=== PATIENT | male | born 1955 | race Caucasian/White ===

== ENCOUNTER 2020-05-12 08:49 | Day surgery (SDC) | payer MEDICARE, OTHER ==
[~2020-05-12 08:49] MED LIST: Dextrose 5%-0.45% NaCl 1,000 ML IV SCH; Midazolam 1 MG/ML 2 ML SDV ONE; fentaNYL 100 MCG/2 ML SDV ONE
[2020-05-12] MEDS ORDERED: Midazolam 1 MG/ML 2 ML SDV IV ONE ×11 (08:50→10:22)
[2020-05-12] MEDS ORDERED: fentaNYL 100 MCG/2 ML SDV IV ONE ×7 (08:50→10:25)
--- NOTE | 2020-05-12 14:57 | OR ---
DATE: 05/12/2020 PREOPERATIVE DIAGNOSIS: Screening colonoscopy. POSTOPERATIVE DIAGNOSIS: Screening colonoscopy. PROCEDURE: Total colonoscopy. ANESTHESIA: Conscious sedation with IV Versed and fentanyl. SPECIMEN: None. OPERATIVE FINDINGS: Normal colonoscopy. RECOMMENDATIONS: Followup screening colonoscopy 10 years or sooner for symptoms. INDICATION FOR PROCEDURE: This 64-year-old male presents for screening colonoscopy. PROCEDURE IN DETAIL: After adequate preparation, a colonoscope was inserted into the rectum. This was easily passed all the way to the cecum. Confirmation of the cecum was made by visualization of the ileocecal valve and palpation in the right lower quadrant. The bowel prep was excellent. On withdrawal of the scope, there were no abnormalities noted. Air was suctioned from the colon and the scope removed. [facility] /[id number]
== END 2020-05-12 11:47 | disposition home or self-care (01) ==
LOC: DL.ENDO 08:49
PROVIDERS: ATTEND Surgery
DX: Z12.11 Encounter for screening for malignant neoplasm of colon (principal); Z88.5 Allergy status to narcotic agent; Z98.890 Other specified postprocedural states
CPT/HCPCS: G0121; J2250; J3010; J7042

== ENCOUNTER 2025-06-06 08:38 | Emergency (ER) | payer MEDICARE, OTHER ==
[2025-06-06] MEDS ORDERED: Sodium Chloride 0.9% 10 ML Syringe FLUSH PRN (08:44)
[2025-06-06] MEDS: Iopamidol 612 MG/ML 100 ML Bottle IVPUSH ONE (08:44)
[2025-06-06 09:12] LABS: BASOPHILS PERCENT AUTO 0.1 % (0.0-1.0); EOSINOPHILS PERCENT AUTO 1.5 % (1.0-3.0); LYMPHOCYTES PERCENT AUTO 13.2 % (20.5-50.1); MONOCYTES PERCENT AUTO 10.5 % (2-8); NEUTROPHILS PERCENT AUTO 74.7 % (42.2-75.2); PLATELET COUNT,PLT 237 10^3/uL (150-450); RED BLOOD CELL COUNT 5.28 10^6/uL (4.6-6.2); WHITE BLOOD CELL COUNT,WBC 9.5 10^3/uL (5.0-10.0)
[2025-06-06 09:33] LABS: A/G RATIO 1.0; ALANINE AMINOTRANSFERASE,ALT 39 U/L (16-63); ASPARTATE AMNIOTRANSFERASE,AST 20 U/L (15-37); BILIRUBIN TOTAL 0.7 mg/dL (0.2-1.0); BLOOD UREA NITROGEN,BUN 19 mg/dL (7-18); CARBON DIOXIDE,CO2 28 mmol/L (21-32); CHLORIDE,CL 100 mmol/L (98-107); CREATININE 1.24 mg/dL (0.70-1.30); EST CRCL DRUG DOSING (CG) 55.43 mL/min; GLUCOSE RANDOM 123 mg/dL (70-99); POTASSIUM,K 3.1 mmol/L (3.5-5.1); PROTEIN TOTAL,TP 8.2 g/dL (6.4-8.2); SODIUM,NA 137 mmol/L (136-145)
[2025-06-06 09:35] LABS: ESTIMATED GFR 63 mL/min (>=60)
[2025-06-06 09:36] LABS: LACTIC ACID 1.7 mmol/L (0.4-2.0)
[2025-06-06 09:56] LABS: INR 1.0 (0.9-1.2); PTT,PARTIAL THROMBOPLSTIN TIME 25.2 SEC (22.0-34.0)
[2025-06-06] MEDS: Potassium Chloride 10 MEQ Tab.ER PO ONE (10:10)
[2025-06-06] MEDS: Ondansetron 4 MG/2 ML SDV IVPUSH ONE (10:15)
== END 2025-06-06 10:30 | disposition home or self-care (01) ==
LOC: DL.ED 08:38
DX: R19.7 Diarrhea, unspecified (principal); I10 Essential (primary) hypertension; E66.9 Obesity, unspecified; Z88.8 Allergy status to other drugs, medicaments and biological substances; Z79.899 Other long term (current) drug therapy; Z90.49 Acquired absence of other specified parts of digestive tract
CPT/HCPCS: 36415; 74177; 80053; 83605; 83735; 85025; 85610; 85730; 86140; 87040; 99283; 99284; A9270; Q9967